=== PATIENT | female | born 1975 | race Caucasian/White ===

== ENCOUNTER 2018-06-17 21:10 | Emergency (ER) | payer MEDICAID ==
[~2018-06-17] VITALS: Ht 175.3 cm; Wt 95.5 kg
[2018-06-17] MEDS ORDERED: HYDR25TA PO (21:40)
[2018-06-17] MEDS ORDERED: METO25XL PO (21:40)
[2018-06-17] MEDS ORDERED: ASPI81 PO (21:40)
[2018-06-17] MEDS ORDERED: LOSA25TA16 PO (21:40)
[2018-06-17] MEDS ORDERED: CLOP75 PO (21:40)
[2018-06-17 22:00] LABS: BASOPHILS % (AUTO) 0.7 % (0.0-2.0); HEMATOCRIT 33.9 % (36-46); HEMOGLOBIN 11.4 g/dL (12.0-16.0); LYMPHOCYTES # (AUTO) 2.8 K/uL (1.0-4.8); LYMPHOCYTES % (AUTO) 32.6 % (22.0-44.0); MEAN CORPUSCULAR HEMOGLOBIN 26.9 pg (26.0-34.0); MEAN CORPUSCULAR HGB CONC 33.7 G/dL (31.0-37.0); MEAN CORPUSCULAR VOLUME 80 fL (80-100); MONOCYTES # (AUTO) 0.5 K/uL (0.1-1.0); MONOCYTES % (AUTO) 6.1 % (2.0-9.0); NEUTROPHILS # (AUTO) 5.1 K/uL (1.8-7.7); NEUTROPHILS % (AUTO) 59.6 % (40.0-70.0); PLATELET COUNT (AUTO) 367 K/uL (150-450); RED BLOOD CELL COUNT(AUTO) 4.24 MIL/uL (4.00-5.20); RED CELL DISTRIBUTION WIDTH 14.7 % (11.5-14.5)
[2018-06-17 22:18] LABS: PROTHROMBIN TIME 10.3 SEC (9.4-11.6)
[2018-06-18] MEDS ORDERED: CloNIDine HCL 0.1 MG TABLET PO ONE (00:30)
[2018-06-18] MEDS ORDERED: OXYMETAZOLINE HCL 0.05% 15 ML NASAL SPRAY NASAL ONE (00:30)
[2018-06-18 01:33] VITALS: BP 99/57
== END 2018-06-18 02:14 | disposition home or self-care (01) ==
LOC: EMS 21:11
DX: J06.9 Acute upper respiratory infection, unspecified (principal); I10 Essential (primary) hypertension; R04.0 Epistaxis; E78.00 Pure hypercholesterolemia, unspecified; Z79.01 Long term (current) use of anticoagulants; Z79.82 Long term (current) use of aspirin; Z79.899 Other long term (current) drug therapy
CPT/HCPCS: 99284